=== PATIENT | female | born 1970 | race Caucasian/White ===

== ENCOUNTER 2017-12-05 22:03 | Emergency (ER) | payer OTHER ==
[~2017-12-05] VITALS: Ht 157.5 cm; Wt 86.2 kg
[~2017-12-05 22:03] MED LIST: ALBU8HFA2 INH; ALBU90OI INH; ASPI81CH PO; AZIT250 PO; Augmentin 875-1 EACH PO; Bactrim Ds Tab1 EACH PO; CEPH500 PO; Cyclobenzaprine5 MG PO; DOXY100 PO; FENO67 PO; FISH1000 PO; FLUT220OIA IH; HYDACE5 PO; Keflex500 MG PO; LISHYD2012 PO; METO50 PO; NAPR500 PO; NITR.4SL SL; Naprosyn500 MG PO; Norco 5-325 Ta1 EACH PO; PARO20 PO; PENVK500 PO; PRED20 PO; SULTRIDS PO; TRAM50 PO; TRAZ100 PO
[2017-12-06] MEDS ORDERED: METO25ER PO (00:02)
[2017-12-06] MEDS ORDERED: Lisinopril2.5 MG (00:02)
[2017-12-06] MEDS ORDERED: Augmentin 875-1 EACH PO (00:18)
== END 2017-12-06 00:27 | disposition home or self-care (01) ==
LOC: ER 22:03
DX: S01.551A Open bite of lip, initial encounter (principal); I10 Essential (primary) hypertension; F17.210 Nicotine dependence, cigarettes, uncomplicated; W54.0XXA Bitten by dog, initial encounter
CPT/HCPCS: 99283

== ENCOUNTER 2018-04-27 20:57 | Emergency (ER) | payer OTHER ==
[~2018-04-27] VITALS: Ht 157.5 cm; Wt 86.2 kg
[~2018-04-27 20:57] MED LIST changes: +Lisinopril2.5 MG; +METO25ER PO
[2018-04-27] MEDS ORDERED: Prinivil10 MG PO (22:05)
[2018-04-27] MEDS ORDERED: IBUP600 PO (22:05)
[2018-04-27] MEDS ORDERED: Lopressor 25 mg25 MG PO (22:05)
== END 2018-04-27 22:11 | disposition home or self-care (01) ==
LOC: ER 20:57
DX: S92.512A Displaced fracture of proximal phalanx of left lesser toe(s), initial encounter for closed fracture (principal); I10 Essential (primary) hypertension; F17.210 Nicotine dependence, cigarettes, uncomplicated; Z79.899 Other long term (current) drug therapy; W22.8XXA Striking against or struck by other objects, initial encounter
CPT/HCPCS: 73630; 99283-25

== ENCOUNTER 2019-05-28 11:30 | Inpatient (IN) | payer OTHER ==
[~2019-05-28] VITALS: Ht 157.5 cm; Wt 80.9 kg
[~2019-05-28 11:30] MED LIST changes: +IBUP600 PO; -Lisinopril2.5 MG; +Lopressor 25 mg25 MG PO; -METO25ER PO; +Prinivil10 MG PO; +ZESTORETIC 20-251 EA
[2019-05-28 12:01] LABS: BASOPHILS ABSOLUTE AUTO 0.05 K/mm3 (0.00-0.23); BASOPHILS PERCENT AUTO 0 % (0-2); EOSINOPHILS ABSOLUTE AUTO 0.01 K/mm3 (0.00-0.68); EOSINOPHILS PERCENT AUTO 0 % (0-6); Hematocrit 43.3 % (33.0-51.0); Hemoglobin 14.7 g/dL (11.5-16.0); IMMATURE GRAN ABSOLUTE AUTO 0.08 K/mm3 (0.00-0.10); IMMATURE GRAN PERCENT AUTO 1 % (0-1); LYMPHOCYTES ABSOLUTE AUTO 1.63 K/mm3 (0.84-5.20); LYMPHOCYTES PERCENT AUTO 10 % (21-46); MONOCYTES ABSOLUTE AUTO 1.18 K/mm3 (0.16-1.47); MONOCYTES PERCENT AUTO 7 % (4-13); Mean Corpuscular HGB 30.6 pg (26.0-34.0); Mean Corpuscular HGB Conc 33.9 g/dL (31.5-36.5); Mean Corpuscular Volume 90 fL (80-100); Mean Platelet Volume 9.7 fL (9.1-12.4); NEUTROPHILS ABSOLUTE AUTO 13.17 K/mm3 (1.96-9.15); NEUTROPHILS PERCENT AUTO 82 % (41-73); Platelet Count 274 K/mm3 (150-400); RDW Coefficient Variation 12.1 % (11.7-14.2); Red Blood Cell Count 4.81 M/mm3 (3.80-5.20); White Blood Cell Count 16.12 K/mm3 (4.00-11.30)
[2019-05-28 12:35] LABS: Bilirubin, Urine Neg (Neg); Blood, Urine 5+ (Neg); Glucose Qualitative, Urine Neg (Neg); Ketones, Urine Neg (Neg); Leukocyte Esterase, Urine 3+ (Neg); Nitrite, Urine Pos (Neg); Protein, Urine 3+ (Neg); Urobilinogen, Urine 2+ (Normal)
[2019-05-28 12:37] LABS: Alanine Aminotransfer (ALT/SGP 19 U/L (12-78); Albumin/Globulin Ratio 0.7 (0.8-1.8); Alk Phos 97 U/L (50-136); Anion Gap 8 mmol/L (6-16); Aspartate Aminotrans (AST/SGOT 11 U/L (12-37); Blood Urea Nitrogen 8 mg/dL (8-24); CO2, Blood 27 mmol/L (21-32); Calcium, Blood 8.4 mg/dL (8.5-10.1); Chloride, Blood 99 mmol/L (98-108); Creatinine, Blood 0.73 mg/dL (0.40-1.00); Globulin, Blood 4.2 g/dL (2.2-4.0); Glomerular Filtration Rate >60 (60-); Glucose, Blood 139 mg/dL (70-99); Sodium, Blood 134 mmol/L (136-145); Total Protein, Blood 7.2 g/dL (6.4-8.2)
[2019-05-28 12:44] LABS: Appearance, Urine Cloudy (Clear); Color, Urine Yellow (P-Yellow)
[2019-05-28 12:46] LABS: Bacteria Mod /hpf; Squamous Epithelial Cells Mod /hpf (Few); White Blood Cells, Urine TNTC /hpf (0-5)
[2019-05-28 16:03] LABS: Albumin, Blood 2.4 g/dL (3.4-5.0); Anion Gap 6 mmol/L (6-16); Blood Urea Nitrogen 7 mg/dL (8-24); CO2, Blood 28 mmol/L (21-32); Calcium, Blood 7.9 mg/dL (8.5-10.1); Chloride, Blood 102 mmol/L (98-108); Glomerular Filtration Rate >60 (60-); Glucose, Blood 108 mg/dL (70-99); Phosphorus, Blood 3.3 mg/dL (2.5-4.9); Potassium, Blood 2.9 mmol/L (3.5-5.5); Sodium, Blood 136 mmol/L (136-145)
[2019-05-29 04:27] LABS: BASOPHILS ABSOLUTE AUTO 0.05 K/mm3 (0.00-0.23); BASOPHILS PERCENT AUTO 0 % (0-2); EOSINOPHILS ABSOLUTE AUTO 0.07 K/mm3 (0.00-0.68); EOSINOPHILS PERCENT AUTO 1 % (0-6); Hematocrit 39.2 % (33.0-51.0); Hemoglobin 13.1 g/dL (11.5-16.0); IMMATURE GRAN ABSOLUTE AUTO 0.07 K/mm3 (0.00-0.10); IMMATURE GRAN PERCENT AUTO 1 % (0-1); LYMPHOCYTES ABSOLUTE AUTO 1.42 K/mm3 (0.84-5.20); LYMPHOCYTES PERCENT AUTO 10 % (21-46); MONOCYTES ABSOLUTE AUTO 1.25 K/mm3 (0.16-1.47); MONOCYTES PERCENT AUTO 9 % (4-13); Mean Corpuscular HGB 30.4 pg (26.0-34.0); Mean Corpuscular HGB Conc 33.4 g/dL (31.5-36.5); Mean Corpuscular Volume 91 fL (80-100); Mean Platelet Volume 10.2 fL (9.1-12.4); NEUTROPHILS PERCENT AUTO 79 % (41-73); Platelet Count 225 K/mm3 (150-400); RDW Coefficient Variation 12.4 % (11.7-14.2); RDW Standard Deviation 41.1 fL (35.1-46.3); Red Blood Cell Count 4.31 M/mm3 (3.80-5.20); White Blood Cell Count 13.76 K/mm3 (4.00-11.30)
[2019-05-30 04:41] LABS: BASOPHILS ABSOLUTE AUTO 0.04 K/mm3 (0.00-0.23); BASOPHILS PERCENT AUTO 1 % (0-2); EOSINOPHILS ABSOLUTE AUTO 0.13 K/mm3 (0.00-0.68); EOSINOPHILS PERCENT AUTO 2 % (0-6); Hematocrit 36.7 % (33.0-51.0); Hemoglobin 11.9 g/dL (11.5-16.0); Mean Corpuscular HGB 30.3 pg (26.0-34.0); Mean Corpuscular HGB Conc 32.4 g/dL (31.5-36.5); Mean Corpuscular Volume 93 fL (80-100); Mean Platelet Volume 10.2 fL (9.1-12.4); Platelet Count 198 K/mm3 (150-400); RDW Coefficient Variation 12.6 % (11.7-14.2); RDW Standard Deviation 43.4 fL (35.1-46.3); Red Blood Cell Count 3.93 M/mm3 (3.80-5.20); White Blood Cell Count 7.92 K/mm3 (4.00-11.30)
[2019-05-30 04:44] LABS: IMMATURE GRAN ABSOLUTE AUTO 0.05 K/mm3 (0.00-0.10); IMMATURE GRAN PERCENT AUTO 1 % (0-1); LYMPHOCYTES ABSOLUTE AUTO 1.44 K/mm3 (0.84-5.20); LYMPHOCYTES PERCENT AUTO 18 % (21-46); MONOCYTES ABSOLUTE AUTO 0.85 K/mm3 (0.16-1.47); MONOCYTES PERCENT AUTO 11 % (4-13); NEUTROPHILS ABSOLUTE AUTO 5.41 K/mm3 (1.96-9.15); NEUTROPHILS PERCENT AUTO 68 % (41-73)
[2019-05-30 05:11] LABS: Anion Gap 7 mmol/L (6-16); Blood Urea Nitrogen 8 mg/dL (8-24); Bun/Creatinine Ratio 10.6 (12.0-20.0); CO2, Blood 26 mmol/L (21-32); Calcium, Blood 7.8 mg/dL (8.5-10.1); Chloride, Blood 103 mmol/L (98-108); Creatinine, Blood 0.76 mg/dL (0.40-1.00); Glomerular Filtration Rate >60 (60-); Glucose, Blood 114 mg/dL (70-99); Potassium, Blood 3.7 mmol/L (3.5-5.5); Sodium, Blood 136 mmol/L (136-145)
[2019-05-31 04:52] LABS: BASOPHILS ABSOLUTE AUTO 0.03 K/mm3 (0.00-0.23); BASOPHILS PERCENT AUTO 0 % (0-2); EOSINOPHILS ABSOLUTE AUTO 0.17 K/mm3 (0.00-0.68); EOSINOPHILS PERCENT AUTO 3 % (0-6); Hematocrit 37.6 % (33.0-51.0); Hemoglobin 12.2 g/dL (11.5-16.0); IMMATURE GRAN ABSOLUTE AUTO 0.04 K/mm3 (0.00-0.10); IMMATURE GRAN PERCENT AUTO 1 % (0-1); LYMPHOCYTES ABSOLUTE AUTO 1.74 K/mm3 (0.84-5.20); LYMPHOCYTES PERCENT AUTO 26 % (21-46); MONOCYTES ABSOLUTE AUTO 0.93 K/mm3 (0.16-1.47); MONOCYTES PERCENT AUTO 14 % (4-13); Mean Corpuscular HGB 29.9 pg (26.0-34.0); Mean Corpuscular HGB Conc 32.4 g/dL (31.5-36.5); Mean Corpuscular Volume 92 fL (80-100); Mean Platelet Volume 10.6 fL (9.1-12.4); NEUTROPHILS ABSOLUTE AUTO 3.84 K/mm3 (1.96-9.15); NEUTROPHILS PERCENT AUTO 57 % (41-73); Platelet Count 266 K/mm3 (150-400); RDW Coefficient Variation 12.7 % (11.7-14.2); RDW Standard Deviation 42.8 fL (35.1-46.3); Red Blood Cell Count 4.08 M/mm3 (3.80-5.20); White Blood Cell Count 6.75 K/mm3 (4.00-11.30)
[2019-05-31 05:23] LABS: Anion Gap 6 mmol/L (6-16); Blood Urea Nitrogen 6 mg/dL (8-24); Bun/Creatinine Ratio 8.5 (12.0-20.0); CO2, Blood 29 mmol/L (21-32); Calcium, Blood 8.5 mg/dL (8.5-10.1); Chloride, Blood 104 mmol/L (98-108); Creatinine, Blood 0.71 mg/dL (0.40-1.00); Glomerular Filtration Rate >60 (60-); Glucose, Blood 85 mg/dL (70-99); Potassium, Blood 3.4 mmol/L (3.5-5.5); Sodium, Blood 139 mmol/L (136-145)
[2019-05-31] MEDS ORDERED: ACET325 PO (10:39)
[2019-05-31] MEDS ORDERED: Nicoderm Cq1 EAC1 TOP (10:40)
[2019-05-31] MEDS ORDERED: LEVO750 PO (10:40)
[2019-05-31] MEDS ORDERED: ONDA4ODT SL (10:42)
[2019-05-31] MEDS ORDERED: POTCHL20ER PO (10:43)
[2019-05-31] MEDS ORDERED: Florastor250 MG PO (10:43)
[2019-05-31] MEDS ORDERED: METR500 PO (10:44)
== END 2019-05-31 11:04 | disposition home or self-care (01) | DRG 872 ==
LOC: ER 11:30 → MEDS 15:16
PROVIDERS: Emergency Medicine; ADMIT Family Medicine
DX: A41.51 Sepsis due to Escherichia coli [E. coli] (principal); N12 Tubulo-interstitial nephritis, not specified as acute or chronic; N39.0 Urinary tract infection, site not specified; E87.1 Hypo-osmolality and hyponatremia; E87.6 Hypokalemia; I10 Essential (primary) hypertension; F17.200 Nicotine dependence, unspecified, uncomplicated
CPT/HCPCS: 36415; 71046; 74176; 76770; 80048; 80053; 80069; 81001; 83605; 85025; 87040; 87077; 87086; 87186; 96361; 96365; 96375; 96376; 99285-25; A9270; J0696; J1170; J1650; J1885; J1956; J2405; J3010; J7030; J7120

== ENCOUNTER → 2019-12-06 | Outpatient (CLI) | payer OTHER ==
[~2019-12-06] MED LIST changes: +ACET325 PO; +Florastor250 MG PO; +LEVO750 PO; +METR500 PO; +Nicoderm Cq1 EAC1 TOP; +ONDA4ODT SL; +POTCHL20ER PO
[2019-12-06 14:26] LABS: Stool Occult Bld Immuno 1 Negative (NEGATIVE)
== END | disposition home or self-care (01) ==
LOC: LAB SHORT 11:33 → LAB 11:33 → LAB FUT 11-18 16:10
PROVIDERS: Nurse Practitioner Family
DX: Z12.31 Encounter for screening mammogram for malignant neoplasm of breast (principal); Z12.11 Encounter for screening for malignant neoplasm of colon; F41.9 Anxiety disorder, unspecified
CPT/HCPCS: G0328

== ENCOUNTER 2021-02-12 18:08 | Observation (INO) | payer OTHER ==
[~2021-02-12] VITALS: Ht 157.5 cm; Wt 84.7 kg
[2021-02-12 18:38] LABS: BASOPHILS ABSOLUTE AUTO 0.07 K/mm3 (0.00-0.23); BASOPHILS PERCENT AUTO 1 % (0-2); EOSINOPHILS ABSOLUTE AUTO 0.29 K/mm3 (0.00-0.68); EOSINOPHILS PERCENT AUTO 2 % (0-6); Hematocrit 44.9 % (33.0-51.0); Hemoglobin 14.7 g/dL (11.5-16.0); IMMATURE GRAN PERCENT AUTO 1 % (0-1); LYMPHOCYTES ABSOLUTE AUTO 3.28 K/mm3 (0.84-5.20); LYMPHOCYTES PERCENT AUTO 25 % (21-46); MONOCYTES ABSOLUTE AUTO 1.12 K/mm3 (0.16-1.47); MONOCYTES PERCENT AUTO 9 % (4-13); Mean Corpuscular HGB Conc 32.7 g/dL (31.5-36.5); Mean Corpuscular Volume 92 fL (80-100); Mean Platelet Volume 9.6 fL (9.1-12.4); NEUTROPHILS ABSOLUTE AUTO 8.32 K/mm3 (1.96-9.15); NEUTROPHILS PERCENT AUTO 63 % (41-73); Platelet Count 380 K/mm3 (150-400); RDW Coefficient Variation 12.7 % (11.7-14.2); RDW Standard Deviation 42.7 fL (35.1-46.3); White Blood Cell Count 13.18 K/mm3 (4.00-11.30)
[2021-02-12 18:54] LABS: International Normalized Ratio 0.91; Prothrombin Time Results 9.9 Sec (9.7-11.5)
[2021-02-12 19:00] LABS: Alanine Aminotransfer (ALT/SGP 31 U/L (12-78); Albumin, Blood 3.4 g/dL (3.4-5.0); Albumin/Globulin Ratio 0.9 (0.8-1.8); Alk Phos 97 U/L (50-136); Anion Gap 4 mmol/L (6-16); Aspartate Aminotrans (AST/SGOT 9 U/L (12-37); Bilirubin, Total 0.3 mg/dL (0.1-1.0); Blood Urea Nitrogen 17 mg/dL (8-24); Bun/Creatinine Ratio 22.9 (12.0-20.0); CO2, Blood 29 mmol/L (21-32); Calcium, Blood 9.1 mg/dL (8.5-10.1); Chloride, Blood 107 mmol/L (98-108); Creatinine, Blood 0.74 mg/dL (0.40-1.00); Globulin, Blood 3.6 g/dL (2.2-4.0); Glomerular Filtration Rate >60 (60-); Glucose, Blood 147 mg/dL (70-99); Potassium, Blood 3.6 mmol/L (3.5-5.5); Sodium, Blood 140 mmol/L (136-145)
[2021-02-12 19:59] LABS: Bilirubin, Urine Neg (Neg); Blood, Urine 2+ (Neg); Glucose Qualitative, Urine Neg (Neg); Ketones, Urine Neg (Neg); Leukocyte Esterase, Urine Neg (Neg); Nitrite, Urine Neg (Neg); Protein, Urine 2+ (Neg); Specific Gravity, Urine 1.025 (1.003-1.022); Urobilinogen, Urine NORM (Normal)
[2021-02-12 20:07] LABS: Appearance, Urine Clear (Clear); Color, Urine Yellow (P-Yellow)
[2021-02-12 20:08] LABS: Bacteria Mod /hpf; Red Blood Cells, Urine 0-2 /hpf (0-2); Squamous Epithelial Cells Rare /hpf (Few); White Blood Cells, Urine 0-2 /hpf (0-5)
[2021-02-12] MEDS ORDERED: LISI20 PO (21:15)
[2021-02-12] MEDS ORDERED: Atarax10 MG PO (21:16)
[2021-02-12] MEDS ORDERED: METF500C PO (21:16)
--- NOTE | 2021-02-13 00:22 | NUR ---
PERMESSIVE HTN HOSPITALIST DR. HEWITT AWARE OF PT HTN. STATES HOLD HYDRALAZINE FOR SBP LESS THAN 180. DR. HEWITT AWARE OF CURRENT BP OF 183/103, STATES OKAY TO HOLD HYDRALAZINE FOR NOW. PT DENIES HEADACHE. A/O X4. NO SLURRED SPEECH OR FACIAL DROOPING NOTICED. CURRENTLY ASLEEP. TELE RUNNING SR IN THE 80'S PER [facility] TRIPPER. CALL LIGHT WITHIN REACH, WILL CONTINUE TO MONITOR.
[2021-02-13 05:45] LABS: Anion Gap 5 mmol/L (6-16); Blood Urea Nitrogen 16 mg/dL (8-24); Bun/Creatinine Ratio 20.5 (12.0-20.0); CO2, Blood 27 mmol/L (21-32); Chloride, Blood 108 mmol/L (98-108); Creatinine, Blood 0.78 mg/dL (0.40-1.00); Glomerular Filtration Rate >60 (60-); Glucose, Blood 155 mg/dL (70-99); Potassium, Blood 3.8 mmol/L (3.5-5.5); Sodium, Blood 140 mmol/L (136-145)
--- NOTE | 2021-02-13 06:26 | NUR ---
LIGHT BULB TESTER SUMMARY PT A/O X4. INDEPDEDENT IN ROOM. NO SLURRED SPEECH, NO FACIAL DROOPING NOTED. PT STATES SHE DOES HAVE TROUBLE "SPITTING OUT WORDS". PUPILS ARE EQUAL AND REACTIVE TO LIGHT. PT DENIES FEELING WEAK IN ONE PARTICULAR SIDE. ALLOWING PERMISSIVE HTN PER DR. NGUYEN. BILATERAL CALF SCD'S IN PLACE. DENIES PAIN, NAUSEA, DIZZINIESS. PLEASANT AND COOPERATIVE. CALL LIGHT WITHIN REACH. ABLE TO MAKE NEEDS KNOWN.
[2021-02-13 09:00] LABS: CHOL/HDL RATIO 5.2; Cholesterol 177 mg/dL (50-200); HDL Cholesterol 34 mg/dL (>39); LDL/HDL RATIO 2.9; Low Density Lipoprotein Chol 99 mg/dL (0-110); Triglycerides 218 mg/dL (30-160); Very Low Density Lipoprot Chol 43 mg/dL (6-32)
--- NOTE | 2021-02-13 12:22 | NUR ---
Echocardiogram using 9.0ml of agitated saline contrast performed by Lina Trujillo under my supervision.
--- NOTE | 2021-02-13 15:42 | NUR ---
PATIENT IS ALERT AND ORIENTED, VERY LETHARGIC AND SLEEPING MUCH. BP REMAINS EXTREMELY ELEVATED AND MD IS CONTINUALLY ADDING MEDICATIONS TO HELP REDUCE HER BP; ALSO CORONARY RISK PANEL PERFORMED THIS MORNING AND PATIENT WAS STARTED ON LIPITOR. PATIENT IS PLEASANT AND COOPERATIVE WITH STAFF; CALLS FOR STAFF ASSIST NEEDED. DENIES PAIN. IS AT BEDSIDE AT THIS TIME. CALL LIGHT WITHIN REACH.
--- NOTE | 2021-02-14 03:28 | NUR ---
SUMMARY NO NEW ISSUES NOTED. PT HAD NO NEURO DEFICITS NOTED. PT HAS BEEN SLEEPING T/O SHIFT. PT HAD NO COMPLAINTS. PT CURRENTLY SLEEPING IN NO DISTRESS. CALL LIGHT IN REACH.
[2021-02-14 05:49] LABS: Anion Gap 4 mmol/L (6-16); Blood Urea Nitrogen 22 mg/dL (8-24); Bun/Creatinine Ratio 28.9 (12.0-20.0); CO2, Blood 29 mmol/L (21-32); Calcium, Blood 8.8 mg/dL (8.5-10.1); Chloride, Blood 106 mmol/L (98-108); Creatinine, Blood 0.76 mg/dL (0.40-1.00); Glomerular Filtration Rate >60 (60-); Glucose, Blood 134 mg/dL (70-99); Potassium, Blood 3.9 mmol/L (3.5-5.5); Sodium, Blood 139 mmol/L (136-145)
[2021-02-14] MEDS ORDERED: ASPI81CH PO (11:07)
[2021-02-14] MEDS ORDERED: ATOR40TA PO (11:07)
[2021-02-14] MEDS ORDERED: HYDCHL25 PO (11:08)
--- NOTE | 2021-02-14 12:28 | NUR ---
DISCHARGE MEDICATIONS AND INFORMATION EXPLAINED TO PATIENT. PCP TO CALL PATIENT AT HOME TO SCHEDULE FOLLOW UP. CARDIOLOGY REFERAL TO BE GIVEN BY PCP. PATIENT STATED UNDERSTANDING. IV REMOVED WITHOUT DIFFICULTY. BELONGINGS SENT WITH PATIENT. PATIENT TRANSPORTED VIA WHEELCHAIR TO PRIVATE VEHICLE.
== END 2021-02-14 12:23 | disposition home or self-care (01) ==
LOC: ER 18:08 → MEDS 18:09
PROVIDERS: Family Medicine; Internal Medicine; Physician Assistant; ADMIT Internal Medicine
DX: G45.9 Transient cerebral ischemic attack, unspecified (principal); I16.0 Hypertensive urgency; I10 Essential (primary) hypertension; I25.10 Atherosclerotic heart disease of native coronary artery without angina pectoris; E11.9 Type 2 diabetes mellitus without complications; F17.200 Nicotine dependence, unspecified, uncomplicated; Z79.84 Long term (current) use of oral hypoglycemic drugs
CPT/HCPCS: 36415; 70450; 80048; 80053; 80061; 81001; 82947; 85025; 85610; 85730; 87077; 87086; 87186; 92523; 92610; 93005; 93010; 93306; 93880; 96374; 97112; 97162; 99285-25; A9270; G0378; J0360

== ENCOUNTER 2022-01-24 19:21 | Inpatient (IN) | payer OTHER ==
[~2022-01-24] VITALS: Ht 157.5 cm; Wt 8.0 kg
[~2022-01-24 19:21] MED LIST changes: +ATOR40TA PO; +Atarax10 MG PO; +HYDCHL25 PO; +LISI20 PO; +METF500C PO
[2022-01-24 20:05] LABS: BASOPHILS ABSOLUTE AUTO 0.05 K/mm3 (0.00-0.23); BASOPHILS PERCENT AUTO 0 % (0-2); EOSINOPHILS PERCENT AUTO 0 % (0-6); Hemoglobin 14.1 g/dL (11.5-16.0); IMMATURE GRAN ABSOLUTE AUTO 0.19 K/mm3 (0.00-0.10); IMMATURE GRAN PERCENT AUTO 1 % (0-1); LYMPHOCYTES ABSOLUTE AUTO 1.43 K/mm3 (0.84-5.20); LYMPHOCYTES PERCENT AUTO 6 % (21-46); MONOCYTES ABSOLUTE AUTO 1.18 K/mm3 (0.16-1.47); MONOCYTES PERCENT AUTO 5 % (4-13); Mean Corpuscular HGB 30.3 pg (26.0-34.0); Mean Corpuscular HGB Conc 33.6 g/dL (31.5-36.5); Mean Corpuscular Volume 90 fL (80-100); Mean Platelet Volume 10.2 fL (9.1-12.4); NEUTROPHILS ABSOLUTE AUTO 19.47 K/mm3 (1.96-9.15); NEUTROPHILS PERCENT AUTO 87 % (41-73); Platelet Count 355 K/mm3 (150-400); RDW Coefficient Variation 12.2 % (11.7-14.2); RDW Standard Deviation 40.4 fL (35.1-46.3); Red Blood Cell Count 4.65 M/mm3 (3.80-5.20); White Blood Cell Count 22.32 K/mm3 (4.00-11.30)
[2022-01-24 20:24] LABS: Alanine Aminotransfer (ALT/SGP 38 U/L (12-78); Albumin, Blood 3.4 g/dL (3.4-5.0); Alk Phos 85 U/L (50-136); Anion Gap 11 mmol/L (6-16); Aspartate Aminotrans (AST/SGOT 7 U/L (12-37); Bilirubin, Total 0.3 mg/dL (0.1-1.0); Blood Urea Nitrogen 22 mg/dL (8-24); Bun/Creatinine Ratio 35.1 (12.0-20.0); CO2, Blood 22 mmol/L (21-32); Chloride, Blood 105 mmol/L (98-108); Creatinine, Blood 0.63 mg/dL (0.40-1.00); Globulin, Blood 3.4 g/dL (2.2-4.0); Glomerular Filtration Rate >60 (60-); Glucose, Blood 476 mg/dL (70-99); Potassium, Blood 3.8 mmol/L (3.5-5.5); Sodium, Blood 138 mmol/L (136-145); Total Protein, Blood 6.8 g/dL (6.4-8.2)
[2022-01-24] MEDS ORDERED: DESV50 PO (20:56)
[2022-01-24] MEDS ORDERED: Cyclobenzaprine5 MG PO (20:59)
[2022-01-24] MEDS ORDERED: MELO7.5 PO (21:00)
[2022-01-24 22:00] LABS: Magnesium, Blood 1.8 mg/dL (1.6-2.4)
[2022-01-24] MEDS ORDERED: DICY20 PO (23:13)
[2022-01-24 23:18] LABS: Anti-Xa UFH, PHA Monitoring <0.10 IU/mL; D-Dimer, Quantitative 0.23 mg/L FEU (0.00-0.52); International Normalized Ratio 0.97; Prothrombin Time Results 10.2 Sec (9.7-11.5)
[2022-01-25 03:22] LABS: U Amphetamine Screen Not Detected; U Barbituate Screen Not Detected; U Benzodiazapine Screen Not Detected; U Buprenorphine Screen Not Detected; U Cannabinoids Screen Not Detected; U Cocaine Screen Not Detected; U Methadone Screen Not Detected; U Methamphetamine Screen Not Detected; U Opiates Screen Not Detected; U Oxycodone Screen Not Detected; U Phencyclidine Screen Not Detected; U Propoxyphene Screen Not Detected
--- NOTE | 2022-01-25 06:11 | NUR ---
SHIFT SUMMARY ASSUMED CARE OF PT AT 0040. PT IS A/OX4. HEART SOUNDS REGULAR. LUNG SOUNDS DIMINISHED AT BASES. PT HAD A DRY COUGH. PT BLOOD SUGAR WAS 353 UPON ARRIVAL TO UNIT. HOSPITALIST CLARE WAS CALLED AND SAID TO CONTINUE FLUIDS AND GIVE SLIDING SCALE DOSE OF 5 UNITS. PT DENIES CP. COMPLAINS OF THIRST DUE TO NPO STATUS. NO ACUTE EVENTS.
[2022-01-25 06:16] LABS: BASOPHILS ABSOLUTE AUTO 0.04 K/mm3 (0.00-0.23); BASOPHILS PERCENT AUTO 0 % (0-2); EOSINOPHILS PERCENT AUTO 0 % (0-6); Hematocrit 40.2 % (33.0-51.0); Hemoglobin 13.3 g/dL (11.5-16.0); IMMATURE GRAN ABSOLUTE AUTO 0.17 K/mm3 (0.00-0.10); IMMATURE GRAN PERCENT AUTO 1 % (0-1); LYMPHOCYTES ABSOLUTE AUTO 1.65 K/mm3 (0.84-5.20); LYMPHOCYTES PERCENT AUTO 8 % (21-46); MONOCYTES ABSOLUTE AUTO 1.32 K/mm3 (0.16-1.47); MONOCYTES PERCENT AUTO 6 % (4-13); Mean Corpuscular HGB 30.5 pg (26.0-34.0); Mean Corpuscular HGB Conc 33.1 g/dL (31.5-36.5); Mean Corpuscular Volume 92 fL (80-100); Mean Platelet Volume 10.1 fL (9.1-12.4); NEUTROPHILS ABSOLUTE AUTO 18.02 K/mm3 (1.96-9.15); NEUTROPHILS PERCENT AUTO 85 % (41-73); Platelet Count 312 K/mm3 (150-400); RDW Coefficient Variation 12.4 % (11.7-14.2); RDW Standard Deviation 41.9 fL (35.1-46.3); Red Blood Cell Count 4.36 M/mm3 (3.80-5.20)
[2022-01-25 06:59] LABS: Alanine Aminotransfer (ALT/SGP 40 U/L (12-78); Albumin, Blood 3.2 g/dL (3.4-5.0); Albumin/Globulin Ratio 1.1 (0.8-1.8); Alk Phos 76 U/L (50-136); Anion Gap 5 mmol/L (6-16); Aspartate Aminotrans (AST/SGOT 10 U/L (12-37); Bilirubin, Total 0.4 mg/dL (0.1-1.0); Blood Urea Nitrogen 20 mg/dL (8-24); Bun/Creatinine Ratio 35.1 (12.0-20.0); CHOL/HDL RATIO 3.7; CO2, Blood 25 mmol/L (21-32); Calcium, Blood 8.6 mg/dL (8.5-10.1); Chloride, Blood 111 mmol/L (98-108); Cholesterol 152 mg/dL (50-200); Creatinine, Blood 0.57 mg/dL (0.40-1.00); Globulin, Blood 2.9 g/dL (2.2-4.0); Glomerular Filtration Rate >60 (60-); Glucose, Blood 227 mg/dL (70-99); HDL Cholesterol 41 mg/dL (>39); LDL/HDL RATIO 2.2; Low Density Lipoprotein Chol 89 mg/dL (0-110); Sodium, Blood 141 mmol/L (136-145); Total Protein, Blood 6.1 g/dL (6.4-8.2); Triglycerides 108 mg/dL (30-160); Very Low Density Lipoprot Chol 21 mg/dL (6-32)
--- NOTE | 2022-01-25 09:29 | NUR ---
CARE ASSUMPTION PT A&Ox4, VSS. BP ELEVATED SCHEDULED MEDS GIVEN PER EMAR. HEPARIN GTT AND NS GTT INFUSING PER ORDERS. PT DENIES CP SINCE YESTERDAY AFTERNOON. ECHO DONE AT BEDSIDE THIS AM. PT NPO FOR ANGIO TODAY.
--- NOTE | 2022-01-25 16:06 | NUR ---
POST ANGIO PT BROUGHT BACK TO ROOM FROM ANGIO AT 1600. A&Ox4, VSS, SPO2>92 RA, SR 60'S. RIGHT RADIAL SITE WNL, ARM BOARD AND TR BAND IN PLACE.
[2022-01-25] MEDS ORDERED: LISI20 PO (16:29)
[2022-01-25] MEDS ORDERED: AMLO10 PO (16:30)
[2022-01-25] MEDS ORDERED: CLOP75 PO (17:03)
--- NOTE | 2022-01-25 18:10 | NUR ---
SHIFT SUMMARY PT A&Ox4, VSS, SPO2>92% RA, SR 60-70'S. TR BAND COMPLETELY DEFLATED AT 1809, TO BE REMOVED AT 1909. PT DENIES CP. NS GTT INFUSING PER ORDER. PT TO DISCHARGE HOME ONCE TR BAND REMOVED. WILL CONTINUE TO MONITOR AND PROVIDE CARE UNTIL REPORT TO NOC.
--- NOTE | 2022-01-25 18:38 | NUR ---
THIS RN AGREES W/ STUDENT NURSE DOCUMENTATION THIS SHIFT.
--- NOTE | 2022-01-25 20:20 | NUR ---
ASSUMED CARE OF PT @1904. TR BAND REMOVED @ 1919 AND WINDOW DRESSING AND ARMBAND APPLIED. SITE CDI WITH NO SWELLING, BLEEDING, OR HEMATOMA. DISCHARGE EDUCATION GIVEN RELATED TO CARDIAC CATH AND SITE WELL DISCHARGE MEDICATIONS AND F/U INSTRUCTIONS. PT AND STATE UNDERSTANDING. NEW PRESCRIPTIONS REROUTED TO [facility] D/T PREFFERED PHARMACY BEING CLOSED ON THURSDAY. ALL QUESTIONS ANSWERED AND REVIEWED. IV REMOVED AND PT AMBULATED TO WHEELCHAIR. ESCORTED OUT BY MARIAN SOFIA WITH .
== END 2022-01-25 20:15 | disposition home or self-care (01) | DRG 282 ==
LOC: ER 19:21 → PCU 01-25 00:39
PROVIDERS: Emergency Medicine; Family Medicine; Internal Medicine Cardiovascular Disease; Physician Assistant; ADMIT Family Medicine
PROC: 4A023N7 Measurement of Cardiac Sampling and Pressure, Left Heart, Percutaneous Approach (ICD-10-PCS; principal; 2022-01-25)
PROC: B2111ZZ Fluoroscopy of Multiple Coronary Arteries using Low Osmolar Contrast (ICD-10-PCS; 2022-01-25)
DX: I21.4 Non-ST elevation (NSTEMI) myocardial infarction (principal); E11.65 Type 2 diabetes mellitus with hyperglycemia; I10 Essential (primary) hypertension; F17.210 Nicotine dependence, cigarettes, uncomplicated; M19.90 Unspecified osteoarthritis, unspecified site; E78.5 Hyperlipidemia, unspecified; F41.1 Generalized anxiety disorder; D72.828 Other elevated white blood cell count; E66.9 Obesity, unspecified; Z68.34 Body mass index [BMI] 34.0-34.9, adult; Z71.6 Tobacco abuse counseling; Z86.73 Personal history of transient ischemic attack (TIA), and cerebral infarction without residual deficits; Z79.82 Long term (current) use of aspirin; Z79.84 Long term (current) use of oral hypoglycemic drugs; Z79.899 Other long term (current) drug therapy
CPT/HCPCS: 36415; 71045; 76937; 80053; 80061; 82947; 83036; 83735; 84484; 85025; 85379; 85520; 85610; 85730; 93005; 93010; 93458; 94760; 96365; 96375; 99152; 99291-25; A9270; C1769; C1887; C1894; C8929; J1644; J2250; J3010; J7030; J7040; Q9957; Q9967

== ENCOUNTER 2024-03-21 06:25 | Day surgery (SDC) | payer OTHER ==
[~2024-03-21] VITALS: Ht 157.5 cm; Wt 80.7 kg
[~2024-03-21 06:25] MED LIST changes: +AMLO10 PO; +CLOP75 PO; +DESV50 PO; +DICY20 PO; +INSULANPEN SC; +Lactated Ringer's 1,000 ML IV SCH; +MELO7.5 PO
[2024-03-21 07:32] VITALS: BP 102/64
--- NOTE | 2024-03-21 07:49 | NUR ---
History, Chart, Medications and Allergies reviewed before start of procedure. Pre-Op teaching done. Pt verbalizes understanding. Patient States Post-Procedure ride home has been arranged WITH [facility]. Ambulatory in [facility] WITH STEADY GAIT. GLASSES PLACED WITH CLOTHES IN PT BELONGING BAG. WARM BLANKET GIVEN TO PT. CALL LIGHT IN REACH. BOYFRIEND AT BEDSIDE.
[2024-03-21] MEDS ORDERED: propofoL 40 ML IV ONE (08:06)
--- NOTE | 2024-03-21 08:11 | NUR ---
03/21/24 0811 Kim Yadav MONITOR INTACT WITH CONTINUOUS PULSE OXIMETRY, CONTINUOUS END TITAL CO2, AND INTERMITTENT BLOOD PRESSURE.
[2024-03-21 08:43] VITALS: BP 95/74
[2024-03-21 08:55] VITALS: BP 90/63
[2024-03-21 09:05] VITALS: BP 99/68
--- NOTE | 2024-03-21 09:10 | NUR ---
Discharge instructions reviewed with patient. Patient verbalizes understanding. Copy given to patient to take home. Patient States Post-Procedure ride home has been arranged. Discharged via wheelchair to private car for ride home.
== END 2024-03-21 09:15 | disposition home or self-care (01) ==
LOC: ORSCMMR 06:25 → ORD 08:00 → ORSCMMR 08:00
PROVIDERS: Internal Medicine Gastroenterology
PROC: 0DBM8ZX Excision of Descending Colon, Via Natural or Artificial Opening Endoscopic, Diagnostic (ICD-10-PCS; principal; 2024-03-21 08:00)
PROC: 0DBN8ZX Excision of Sigmoid Colon, Via Natural or Artificial Opening Endoscopic, Diagnostic (ICD-10-PCS; principal; 2024-03-21 08:00)
DX: Z12.11 Encounter for screening for malignant neoplasm of colon (principal); K63.5 Polyp of colon; D12.4 Benign neoplasm of descending colon; E11.9 Type 2 diabetes mellitus without complications; I10 Essential (primary) hypertension; I25.10 Atherosclerotic heart disease of native coronary artery without angina pectoris; G47.33 Obstructive sleep apnea (adult) (pediatric); F17.210 Nicotine dependence, cigarettes, uncomplicated; Z79.84 Long term (current) use of oral hypoglycemic drugs; Z79.4 Long term (current) use of insulin; Z79.02 Long term (current) use of antithrombotics/antiplatelets; Z79.899 Other long term (current) drug therapy
CPT/HCPCS: 82947; 88305; J2704; J7120

== ENCOUNTER → 2024-07-04 | Outpatient (CLI) | payer OTHER ==
[~2024-07-04] MED LIST changes: -Lactated Ringer's 1,000 ML IV SCH
[2024-07-04 18:04] LABS: BASOPHILS PERCENT AUTO 1 % (0-2); EOSINOPHILS ABSOLUTE AUTO 0.19 K/mm3 (0.00-0.68); EOSINOPHILS PERCENT AUTO 2 % (0-6); Hematocrit 46.9 % (33.0-51.0); Hemoglobin 15.6 g/dL (11.5-16.0); IMMATURE GRAN ABSOLUTE AUTO 0.05 K/mm3 (0.00-0.10); IMMATURE GRAN PERCENT AUTO 1 % (0-1); LYMPHOCYTES ABSOLUTE AUTO 2.74 K/mm3 (0.84-5.20); LYMPHOCYTES PERCENT AUTO 27 % (21-46); MONOCYTES ABSOLUTE AUTO 0.54 K/mm3 (0.16-1.47); MONOCYTES PERCENT AUTO 5 % (4-13); Mean Corpuscular HGB 29.8 pg (26.0-34.0); Mean Corpuscular HGB Conc 33.3 g/dL (31.5-36.5); Mean Corpuscular Volume 90 fL (80-100); Mean Platelet Volume 10.6 fL (9.1-12.4); NEUTROPHILS ABSOLUTE AUTO 6.65 K/mm3 (1.96-9.15); NEUTROPHILS PERCENT AUTO 65 % (41-73); Platelet Count 388 K/mm3 (150-400); RDW Coefficient Variation 12.4 % (11.7-14.2); RDW Standard Deviation 40.7 fL (35.1-46.3); Red Blood Cell Count 5.23 M/mm3 (3.80-5.20); White Blood Cell Count 10.27 K/mm3 (4.00-11.30)
[2024-07-04 18:27] LABS: Albumin, Blood 3.4 g/dL (3.4-5.0); Albumin/Globulin Ratio 0.9 (0.8-1.8); Alk Phos 81 U/L (50-136); Anion Gap 8 mmol/L (3-11); Aspartate Aminotrans (AST/SGOT 30 U/L (12-37); Bilirubin, Total 0.5 mg/dL (0.1-1.0); Blood Urea Nitrogen 16 mg/dL (8-24); CHOL/HDL RATIO 5.9; CO2, Blood 30 mmol/L (21-32); Calcium, Blood 9.1 mg/dL (8.5-10.1); Chloride, Blood 103 mmol/L (98-108); Cholesterol 208 mg/dL (50-200); Globulin, Blood 3.9 g/dL (2.2-4.0); Glucose, Blood 170 mg/dL (70-99); HDL Cholesterol 35 mg/dL (>39); LDL/HDL RATIO 3.5; Low Density Lipoprotein Chol 122 mg/dL (0-110); Potassium, Blood 3.7 mmol/L (3.5-5.5); Sodium, Blood 137 mmol/L (136-145); Total Protein, Blood 7.3 g/dL (6.4-8.2); Triglycerides 254 mg/dL (30-160); Very Low Density Lipoprot Chol 50 mg/dL (6-32)
[2024-07-04 18:34] LABS: Microalb/Creat Ratio UR, Rand 8.538 mg/g (0.000-30.000); Microalbumin, Random Urine 6.66 mg/L (0.000-20.000)
[2024-07-04 18:36] LABS: Alanine Aminotransfer (ALT/SGP 39 U/L (12-78); Bun/Creatinine Ratio 18.1 (12.0-20.0); Creatinine, Blood 0.88 mg/dL (0.40-1.00); Glomerular Filtration Rate 78 (60-)
[2024-07-06 18:05] LABS: HIV 1,2 COMBO ANTIGEN/ANTIBODY Negative (Negative)
[2024-07-06 19:40] LABS: HEPATITIS C AB CIA INTERP Negative (Negative); HEPATITIS C ANTIBODY CIA INDEX 0.07 IV
== END | disposition home or self-care (01) ==
LOC: LAB SHORT 12:00 → LAB 12:00
PROVIDERS: Physician Assistant
DX: Z11.4 Encounter for screening for human immunodeficiency virus [HIV] (principal); Z11.59 Encounter for screening for other viral diseases; Z79.899 Other long term (current) drug therapy
CPT/HCPCS: 80053; 80061; 82043; 82306; 82570; 84443; 85025; 86803; 87389

== ENCOUNTER 2024-11-17 19:26 | Observation (INO) | payer OTHER ==
[~2024-11-17] VITALS: Ht 157.5 cm; Wt 81.4 kg
[2024-11-17 20:03] LABS: BASOPHILS ABSOLUTE AUTO 0.05 K/mm3 (0.00-0.23); BASOPHILS PERCENT AUTO 1 % (0-2); EOSINOPHILS ABSOLUTE AUTO 0.16 K/mm3 (0.00-0.68); EOSINOPHILS PERCENT AUTO 2 % (0-6); Hemoglobin 12.9 g/dL (11.5-16.0); IMMATURE GRAN ABSOLUTE AUTO 0.02 K/mm3 (0.00-0.10); IMMATURE GRAN PERCENT AUTO 0 % (0-1); LYMPHOCYTES ABSOLUTE AUTO 1.09 K/mm3 (0.84-5.20); LYMPHOCYTES PERCENT AUTO 16 % (21-46); MONOCYTES ABSOLUTE AUTO 0.59 K/mm3 (0.16-1.47); MONOCYTES PERCENT AUTO 9 % (4-13); Mean Corpuscular HGB 29.6 pg (26.0-34.0); Mean Corpuscular HGB Conc 33.9 g/dL (31.5-36.5); Mean Corpuscular Volume 87 fL (80-100); Mean Platelet Volume 9.7 fL (9.1-12.4); NEUTROPHILS ABSOLUTE AUTO 4.82 K/mm3 (1.96-9.15); NEUTROPHILS PERCENT AUTO 72 % (41-73); Platelet Count 274 K/mm3 (150-400); RDW Coefficient Variation 12.4 % (11.7-14.2); RDW Standard Deviation 39.8 fL (35.1-46.3); Red Blood Cell Count 4.36 M/mm3 (3.80-5.20); White Blood Cell Count 6.73 K/mm3 (4.00-11.30)
[2024-11-17 20:31] LABS: Albumin, Blood 3.3 g/dL (3.4-5.0); Albumin/Globulin Ratio 0.8 (0.8-1.8); Bilirubin, Total 0.6 mg/dL (0.1-1.0); Bun/Creatinine Ratio 14.6 (12.0-20.0); Creatinine, Blood 0.82 mg/dL (0.40-1.00); Potassium, Blood 3.8 mmol/L (3.5-5.5); Total Protein, Blood 7.3 g/dL (6.4-8.2)
[2024-11-17] MEDS ORDERED: Nitroglycerin 0.4 MG SUBL SL PRN (21:05)
[2024-11-17] MEDS ORDERED: Aspirin 81 MG Chew PO ONE (21:05)
[2024-11-17] MEDS ORDERED: CEFDINIR300 M4 PO (21:06)
[2024-11-17] MEDS ORDERED: GABA400 PO (21:06)
[2024-11-17] MEDS ORDERED: AZIT250 PO (21:07)
[2024-11-17 23:31] LABS: Anti-Xa UFH, PHA Monitoring <0.10 IU/mL; International Normalized Ratio 0.98; Prothrombin Time Results 10.5 Sec (9.7-11.5)
[2024-11-17] MEDS ORDERED: FLU VACC TS2024-25(6MOS UP)/PF 45 MCG/0.5 ML SYRINGE IM ONE (23:45)
[2024-11-17] MEDS ORDERED: Ondansetron 4 MG TAB PO PRN (23:50)
[2024-11-17] MEDS ORDERED: Heparin Sodium,Porcine/0.5 NS 500 ML IV SCH (23:50)
[2024-11-17] MEDS ORDERED: HyDROXyzine HCl 25 MG Tab PO PRN (23:50)
[2024-11-17] MEDS ORDERED: Heparin Sodium 5000 Units/ML 1ML MDV IV ONE (23:50)
[2024-11-17] MEDS ORDERED: Acetaminophen 325 MG TABLET PO PRN (23:55)
[2024-11-18 06:53] LABS: BASOPHILS ABSOLUTE AUTO 0.03 K/mm3 (0.00-0.23); BASOPHILS PERCENT AUTO 1 % (0-2); EOSINOPHILS ABSOLUTE AUTO 0.11 K/mm3 (0.00-0.68); EOSINOPHILS PERCENT AUTO 2 % (0-6); Hemoglobin 11.9 g/dL (11.5-16.0); IMMATURE GRAN ABSOLUTE AUTO 0.01 K/mm3 (0.00-0.10); IMMATURE GRAN PERCENT AUTO 0 % (0-1); LYMPHOCYTES ABSOLUTE AUTO 1.53 K/mm3 (0.84-5.20); LYMPHOCYTES PERCENT AUTO 32 % (21-46); MONOCYTES ABSOLUTE AUTO 0.55 K/mm3 (0.16-1.47); MONOCYTES PERCENT AUTO 11 % (4-13); Mean Corpuscular HGB 29.8 pg (26.0-34.0); Mean Corpuscular Volume 88 fL (80-100); Mean Platelet Volume 10.1 fL (9.1-12.4); NEUTROPHILS ABSOLUTE AUTO 2.63 K/mm3 (1.96-9.15); NEUTROPHILS PERCENT AUTO 54 % (41-73); Platelet Count 230 K/mm3 (150-400); RDW Coefficient Variation 12.3 % (11.7-14.2); RDW Standard Deviation 39.5 fL (35.1-46.3); Red Blood Cell Count 3.99 M/mm3 (3.80-5.20); White Blood Cell Count 4.86 K/mm3 (4.00-11.30)
[2024-11-18 07:08] LABS: CHOL/HDL RATIO 3.4; Cholesterol 106 mg/dL (50-200); HDL Cholesterol 31 mg/dL (>39); LDL/HDL RATIO 1.8; Low Density Lipoprotein Chol 55 mg/dL (0-110); Triglycerides 102 mg/dL (30-160); Very Low Density Lipoprot Chol 20 mg/dL (6-32)
[2024-11-18] MEDS ORDERED: Insulin Human Lispro 100 Units/ML 3ML Syringe SC SCH (07:30)
[2024-11-18] MEDS ORDERED: Dose Adjust by Pharmacy XX STA ×2 (07:44→16:20)
[2024-11-18] MEDS ORDERED: Heparin Sodium 5000 Units/ML 1ML MDV IV ONE ×3 (07:45→16:20)
[2024-11-18] MEDS ORDERED: Enoxaparin 40 MG/0.4 ML SYR SC SCH (09:00)
[2024-11-18] MEDS ORDERED: Metoprolol Tartrate 50 MG Tab PO SCH (09:00)
[2024-11-18] MEDS ORDERED: HydroCHLOROthiazide 25 mg Tab PO SCH (09:00)
[2024-11-18] MEDS ORDERED: Clopidogrel Bisulfate 75 MG Tab PO SCH (09:00)
[2024-11-18] MEDS ORDERED: Lisinopril 20 MG Tab PO SCH (09:00)
[2024-11-18] MEDS ORDERED: Aspirin 81 MG Chew PO SCH (09:00)
[2024-11-18] MEDS ORDERED: AmLODIPine Besylate 5 MG Tab PO SCH (09:00)
[2024-11-18] MEDS ORDERED: Atorvastatin 40 MG Tab PO SCH (09:00)
[2024-11-18 09:13] LABS: Albumin, Blood 2.8 g/dL (3.4-5.0); Albumin/Globulin Ratio 0.8 (0.8-1.8); Bilirubin, Total 0.5 mg/dL (0.1-1.0); Bun/Creatinine Ratio 11.3 (12.0-20.0); Calcium, Blood 8.2 mg/dL (8.5-10.1); Creatinine, Blood 0.88 mg/dL (0.40-1.00); Globulin, Blood 3.5 g/dL (2.2-4.0); Potassium, Blood 3.7 mmol/L (3.5-5.5); Total Protein, Blood 6.3 g/dL (6.4-8.2)
[2024-11-18] MEDS ORDERED: Regadenoson 0.4 MG/5 ML SYRINGE ONE (13:19)
[2024-11-18] MEDS ORDERED: Caffeine Citrated 60 MG/3 ML Vial ONE (13:20)
[2024-11-18 15:50] VITALS: BP 109/70
[2024-11-18] MEDS ORDERED: Nicoderm Cq1 EAC1 TOP (18:45)
--- NOTE | 2024-11-18 19:23 | NUR ---
DISCHARGE PT DISCHARGED HOME AT 1900, ALL BELONGINGS WITH PT, EDUCATION PROVIDED.
[2024-11-18] MEDS ORDERED: Azithromycin 250 MG Tab PO SCH (21:00)
[2024-11-18] MEDS ORDERED: Cefdinir 300 MG Cap PO SCH (21:00)
[2024-11-18] MEDS ORDERED: Insulin Glargine-Yfgn 100 Unit/mL 3 ML SYR SC SCH (21:00)
== END 2024-11-18 19:08 | disposition home or self-care (01) ==
LOC: ER 19:26 → ERHOLD 19:27 → ER 23:45 → ERHOLD 23:45 → MEDS 11-18 15:40
PROVIDERS: Emergency Medicine; Student in an Organized Health Care Education/Training Program; ADMIT Student in an Organized Health Care Education/Training Program
DX: I21.4 Non-ST elevation (NSTEMI) myocardial infarction (principal); E11.65 Type 2 diabetes mellitus with hyperglycemia; J18.9 Pneumonia, unspecified organism; I10 Essential (primary) hypertension; G47.33 Obstructive sleep apnea (adult) (pediatric); R05.9 Cough, unspecified; R50.9 Fever, unspecified; F17.210 Nicotine dependence, cigarettes, uncomplicated; Z79.82 Long term (current) use of aspirin; Z79.02 Long term (current) use of antithrombotics/antiplatelets; Z79.4 Long term (current) use of insulin; Z79.84 Long term (current) use of oral hypoglycemic drugs; Z79.899 Other long term (current) drug therapy
CPT/HCPCS: 36415; 71046; 78452; 80053; 80061; 82947; 83036; 83690; 83735; 84443; 84484; 85025; 85520; 85610; 93005; 93010; 93017; 93306; 96374; 99285-25; A9270; A9500; G0378; J0706; J1644; J1815; J2785